=== PATIENT | male | born 1980 | race Caucasian/White ===

== ENCOUNTER 2022-05-19 12:09 | Emergency (ER) | payer BC ==
[2022-05-19 13:12] VITALS: BP 133/90; PULSE 67
== END 2022-05-19 13:08 | disposition home or self-care (01) ==
LOC: MW.ED 12:09
DX: J02.9 Acute pharyngitis, unspecified (principal); J32.8 Other chronic sinusitis; B97.89 Other viral agents as the cause of diseases classified elsewhere; E78.00 Pure hypercholesterolemia, unspecified; I10 Essential (primary) hypertension; F17.210 Nicotine dependence, cigarettes, uncomplicated; Z79.899 Other long term (current) drug therapy
CPT/HCPCS: 87651-QW; 99283